=== PATIENT | male | born 1965 | race American Indian/Alaskan Native ===

== ENCOUNTER 2017-10-03 17:24 | Emergency (ER) | payer OTHER ==
[2017-10-03 18:38] LABS: Basophils % (Auto) 0.4 % (0.0-1.8); Eosinophils % (Auto) 0.9 % (0.0-4.3); Hemoglobin 15.1 gm/dl (11.8-15.2); Mean Corpuscular HGB Conc 33 % (32-34); Mean Corpuscular Hemoglobin 29 pg (28-32); Mean Corpuscular Volume 88 fl (84-94); Red Blood Count 5.24 M/mm3 (3.65-5.03); Red Cell Distribution Width 14.5 % (13.2-15.2); White Blood Count 9.6 K/mm3 (4.5-11.0)
[2017-10-03 18:50] LABS: Alanine Aminotransferase 17 units/L (7-56); Albumin 4.5 g/dL (3.9-5); Albumin/Globulin Ratio 1.6 %; Alkaline Phosphatase 92 units/L (35-129); Anion Gap 21 mmol/L; BUN/Creatinine Ratio 16; Blood Urea Nitrogen 18 mg/dL (9-20); Calcium 11.4 mg/dL (8.4-10.2); Carbon Dioxide 23 mmol/L (22-30); Chloride 100.1 mmol/L (98-107); Glucose 94 mg/dL (75-100); Potassium 4.9 mmol/L (3.6-5.0); Sodium 139 mmol/L (137-145); Total Protein 7.4 g/dL (6.3-8.2)
[2017-10-03 19:12] LABS: Platelet Count 139 K/mm3 (140-440)
[2017-10-03] MEDS ORDERED: KEPPRA 1,000 MG/NS 0.75% 100ML 1,000 MG/100 ML BAG IV ONE (19:39)
--- NOTE | 2017-10-03 20:21 | Emergency Department Report ---
HPI - General Chief Complaint: Seizure Time Seen by Provider: 10/03/17 19:26 - HPI HPI: This is a 52 year-old male presents to the emergency department by EMS from [facility] with some witnessed seizure-like activity. The patient says that he does have a history of seizures and has had a seizure about 5 times total in the past. He is unable to tell me what he takes for seizures. However he says he takes Prolixin and Depakote for his history of bipolar disorder. He also has a past medical history of hypertension. Currently the patient has no complaints. He does have the psych history as well as a more remote history of drug abuse. He does not have a primary care physician. No recent travel. ED Past Medical Hx - Past Medical History Previous Medical History?: Yes Hx Hypertension: Yes Hx CVA: Yes Hx Seizures: Yes Hx Psychiatric Treatment: Yes - Social History Smoking Status: Current Every Day Smoker Substance Use Type: Tranquilizers ED Review of Systems ROS: Stated complaint: SEIZURE Other details as noted in HPI Comment: All other systems reviewed and negative Constitutional: denies: chills, fever Eyes: denies: eye pain, eye discharge, vision change ENT: denies: ear pain, throat pain Respiratory: denies: cough, shortness of breath, wheezing Cardiovascular: denies: chest pain, palpitations Gastrointestinal: denies: abdominal pain, nausea, diarrhea Genitourinary: denies: urgency, dysuria Musculoskeletal: denies: back pain, joint swelling, arthralgia Skin: denies: rash, lesions Neurological: denies: headache, weakness Physical Exam - Physical Exam Vital Signs: Vital Signs 10/03/17 10/03/17 10/03/17 17:25 17:47 17:53 Temperature 98.7 F Pulse Rate 115 H Respiratory 18 18 Rate Blood Pressure 139/77 126/77 Blood Pressure [Left] O2 Sat by Pulse 99 Oximetry 10/03/17 19:00 Temperature 98.2 F Pulse Rate 69 Respiratory 12 Rate Blood Pressure Blood Pressure 132/103 [Left] O2 Sat by Pulse 96 Oximetry Physical Exam: GENERAL: The patient is well-developed well-nourished. HENT: Normocephalic. Atraumatic. Patient has moist mucous membranes. Oropharynx is clear but the patient has no teeth. EYES: Extraocular motions are intact. Pupils equal reactive to light bilaterally. No nystagmus. NECK: Supple. Trachea is midline. CHEST/LUNGS: Clear to auscultation. There is no respiratory distress noted. HEART/CARDIOVASCULAR: Regular. There is no tachycardia. There is no murmur. ABDOMEN: Abdomen is soft, nontender. Patient has normal bowel sounds. There is no abdominal distention. SKIN: Skin is warm and dry. NEURO: The patient is awake, alert. The patient is cooperative. The patient has no focal neurologic deficits. MUSCULOSKELETAL: There is no tenderness or deformity. There is no limitation range of motion. There is no evidence of acute injury. ED Course Vital Signs 10/03/17 10/03/17 10/03/17 17:25 17:47 17:53 Temperature 98.7 F Pulse Rate 115 H Respiratory 18 18 Rate Blood Pressure 139/77 126/77 Blood Pressure [Left] O2 Sat by Pulse 99 Oximetry 10/03/17 19:00 Temperature 98.2 F Pulse Rate 69 Respiratory 12 Rate Blood Pressure Blood Pressure 132/103 [Left] O2 Sat by Pulse 96 Oximetry ED Medical Decision Making - Lab Data Result diagrams: 10/03/17 18:17 10/03/17 18:17 - EKG Data -: EKG Interpreted by Ia EKG shows normal: sinus rhythm, axis (borderline left axis), intervals, QRS complexes (Q waves to the septal leads, LVH), ST-T waves Rate: normal - EKG Data When compared to previous EKG there are: previous EKG unavailable Interpretation: LVH, other (sinus rhythm, borderline left axis, Q waves to the septal leads) - Radiology Data Radiology results: report reviewed PROCEDURE: CT HEAD/BRAIN WO CON TECHNIQUE: Computerized tomography of the head was performed without contrast material. HISTORY: Seizure COMPARISON: No prior studies are available for comparison. FINDINGS: Skull and scalp: Normal. Paranasal sinuses: Slight fluid mastoid Ventricles and subarachnoid spaces: Normal. Cerebrum: No evidence of hemorrhage, acute infarction or mass . Cerebellum and brainstem: No evidence of hemorrhage, acute infarction or mass. Vasculature: Normal. Comments: None. IMPRESSION: No acute intracranial pathology seen at this time Transcribed By: RENEA Dictated By: ANGELES CANALES MD Electronically Authenticated By: ANGELES CANALES MD Signed Date/Time: 10/03/17 3343 - Medical Decision Making The patient presents after a alleged seizure. He says that he does have some type of seizure disorder or seizure history but is not on any antiseizure medications. He happens to be on Depakote but this is supposedly for his bipolar disorder. The Depakote level was subtherapeutic. He was given a loading dose and says that he has his regular medications at home. CT of the head did not show any bleed, shift, mass or any acute process. EKG shows some signs of LVH but otherwise no signs of any ST elevation PA or dysrhythmia. Urine drug screen was negative. The rest of his labs were unremarkable except for some hypercalcemia. Patient has not shown any signs of confusion or altered mental status. He was able to ambulate in the emergency department and appeared stable while doing so. For all these reasons the patient appears safe for discharge home at this time but has been given a referral for both primary care and neurology. He will return to the emergency Department with any worsening of symptoms or any acute distress. Critical Care Time: No Critical care attestation.: If time is entered above; I have spent that time in minutes in the direct care of this critically ill patient, excluding procedure time. ED Disposition Clinical Impression: Seizure, Seizure secondary to subtherapeutic anticonvulsant medication Disposition: DC-01 TO HOME OR SELFCARE Is pt being admited?: No Condition: Stable Instructions: Recurrent Seizures Adult (ED) Additional Instructions: Please follow up with a primary care physician in the next few days. I have given a referral for a local neurologist, Dr. Schwarz, to follow up regarding her seizures. Please take your Depakote and Prolixin as previously prescribed. Referrals: HARJINDER BLANCHARD MD [Primary Care Provider] - 3-5 Days IZABELA AGUILAR MD [Staff Physician] - 3-5 Days [facility] [Outside] - 3-5 Days Time of Disposition: 00:59
[2017-10-03 20:32] LABS: Urine Drugs of Abuse Note Disclamer
[2017-10-03 20:41] LABS: Creatine Kinase 180 units/L (55-170)
[2017-10-03 20:42] LABS: Bilirubin,Urine NEG (Negative); Blood,Urine SM (Negative); Ketones,Urine NEG (Negative); Leukocyte Esterase,Urine NEG (Negative); Mucus,Urine FEW /HPF; Nitrite,Urine NEG (Negative); Sperm,Urine 1+ /HPF (NP); Urobilinogen,Urine < 2.0 mg/dL (<2.0)
--- NOTE | 2017-10-03 21:28 | Cat Scan Report ---
FINAL REPORT PROCEDURE: CT HEAD/BRAIN WO CON TECHNIQUE: Computerized tomography of the head was performed without contrast material. HISTORY: Seizure COMPARISON: No prior studies are available for comparison. FINDINGS: Skull and scalp: Normal. Paranasal sinuses: Slight fluid mastoid Ventricles and subarachnoid spaces: Normal. Cerebrum: No evidence of hemorrhage, acute infarction or mass . Cerebellum and brainstem: No evidence of hemorrhage, acute infarction or mass. Vasculature: Normal. Comments: None. IMPRESSION: No acute intracranial pathology seen at this time
[2017-10-03] MEDS ORDERED: DepaCON 1,000 MG in NACL 0.9% 100 ML IV ONE (22:34)
[2017-10-04 00:58] VITALS: BP 124/82
== END 2017-10-04 07:05 | disposition home or self-care (01) ==
LOC: ED 17:24
DX: R56.9 Unspecified convulsions (principal); F31.9 Bipolar disorder, unspecified; I10 Essential (primary) hypertension; F17.200 Nicotine dependence, unspecified, uncomplicated; F13.10 Sedative, hypnotic or anxiolytic abuse, uncomplicated; Z86.73 Personal history of transient ischemic attack (TIA), and cerebral infarction without residual deficits
CPT/HCPCS: 36415; 70450; 80053; 80164; 80307; 81001; 82550; 84484; 85025; 93005; 93010; 96365; 96366; 96367; 99285; J1953

== ENCOUNTER 2017-10-27 08:03 | Emergency (ER) | payer SELFPAY ==
[2017-10-27 08:48] LABS: Hematocrit 46.8 % (35.5-45.6); Mean Corpuscular HGB Conc 32 % (32-34); Mean Corpuscular Hemoglobin 28 pg (28-32); Mean Corpuscular Volume 89 fl (84-94); Platelet Count 171 K/mm3 (140-440); Red Blood Count 5.28 M/mm3 (3.65-5.03); Red Cell Distribution Width 14.7 % (13.2-15.2)
[2017-10-27 09:00] LABS: BUN/Creatinine Ratio 10; Blood Urea Nitrogen 9 mg/dL (9-20); Calcium 10.6 mg/dL (8.4-10.2); Hemolysis Index 10
--- NOTE | 2017-10-27 11:02 | Emergency Department Report ---
ED Seizure HPI - General Chief Complaint: Seizure Stated Complaint: SEIZURE Time Seen by Provider: 10/27/17 10:52 Source: patient, EMS Mode of arrival: Ambulatory Limitations: No Limitations - History of Present Illness Initial Comments: Patient is a 52-year-old male that presents to emergency room with seizure activity lasted 45 seconds per apartment staff and EMS. Seizure was witnessed by apartment staff. Patient states his last seizure was 3-4 weeks ago. Patient states he stopped taking his medications 2 weeks ago He is not sure of the name of his medications but has been at home. Patient states he is having visual hallucination which is normal for him. She denies pain at this time. Patient is A&O 4. He denies chest pain or shortness of breath and fever and chills. Patient denies injury during seizure. MD Complaint: seizure -: Sudden Description of Episode: loss of consciousness, tonic-clonic movement -: second(s) (lasted 45 seconds per EMS) Witnessed:: Yes Trauma: No Place: home Possible Precipitating Event: medication (patient ran out of medications 4 days ago) Associated Symptoms: denies other symptoms Treatments Prior to Arrival: none - Related Data Allergies Allergy/AdvReac Type Severity Reaction Status Date / Time haloperidol [From Haldol] Allergy Angioedema Verified 10/27/17 08:10 ED Review of Systems ROS: Stated complaint: SEIZURE Other details as noted in HPI Constitutional: denies: chills, fever Eyes: denies: eye pain, eye discharge, vision change ENT: denies: ear pain, throat pain Respiratory: denies: cough, shortness of breath, wheezing Cardiovascular: denies: chest pain, palpitations Endocrine: no symptoms reported Gastrointestinal: denies: abdominal pain, nausea, diarrhea Genitourinary: denies: urgency, dysuria Musculoskeletal: denies: back pain, joint swelling, arthralgia Skin: denies: rash, lesions Neurological: denies: headache, weakness, paresthesias Psychiatric: visual hallucinations (presenting a long history of visual hallucinations). denies: anxiety, depression Hematological/Lymphatic: denies: easy bleeding, easy bruising ED Past Medical Hx - Past Medical History Previous Medical History?: Yes Hx Hypertension: Yes Hx CVA: Yes Hx Seizures: Yes Hx Psychiatric Treatment: Yes - Surgical History Past Surgical History?: No Additional Surgical History: UNKNOWN - Family History Family history: no significant - Social History Smoking Status: Current Every Day Smoker Substance Use Type: None ED Physical Exam - General Limitations: No Limitations General appearance: alert, in no apparent distress - Head Head exam: Present: atraumatic, normocephalic - Eye Eye exam: Present: normal appearance, PERRL, EOMI Pupils: Present: normal accommodation - ENT ENT exam: Present: normal exam, mucous membranes moist - Neck Neck exam: Present: normal inspection - Respiratory Respiratory exam: Present: normal lung sounds bilaterally. Absent: respiratory distress - Cardiovascular Cardiovascular Exam: Present: regular rate, normal rhythm. Absent: systolic murmur, diastolic murmur, rubs, gallop - GI/Abdominal GI/Abdominal exam: Present: soft, normal bowel sounds - Rectal Rectal exam: Present: deferred - Extremities Exam Extremities exam: Present: normal inspection - Back Exam Back exam: Present: normal inspection - Neurological Exam Neurological exam: Present: alert, oriented X3, CN II-XII intact, normal gait, motor sensory deficit, reflexes normal - Psychiatric Psychiatric exam: Present: normal affect, normal mood - Skin Skin exam: Present: warm, dry, intact, normal color. Absent: rash ED Course Vital Signs 10/27/17 10/27/17 08:10 12:42 Temperature 98.5 F 98.9 F Pulse Rate 117 H 72 Respiratory 18 18 Rate Blood Pressure 152/111 Blood Pressure 120/90 [Left] O2 Sat by Pulse 99 100 Oximetry ED Medical Decision Making - Lab Data Result diagrams: 10/27/17 08:30 10/27/17 08:30 - Medical Decision Making Patient neurologically intact and stable for discharge. Patient given low-dose of Keppra and instructed to restart his Depakote once again, as directed by his neurologist. Follow up with neurologist as soon as possible as well as his primary care within 3-5 days. Patient encouraged to take medications as directed TO avoid having another seizure. She states she does have medication at his apartment. - Differential Diagnosis sz. Noncompliance. Critical care attestation.: If time is entered above; I have spent that time in minutes in the direct care of this critically ill patient, excluding procedure time. ED Disposition Clinical Impression: Seizure, Noncompliance with medication regimen Disposition: TO HOME OR SELFCARE Is pt being admited?: No Does the pt Need Aspirin: No Condition: Stable Instructions: Epilepsy (ED) Additional Instructions: Patient to follow up with neurologist and primary care within 3 days. Patient follow up in ER if condition worsens. Patient to take meds as prescribed. Referrals: MACIEL MERIDA MD [Primary Care Provider] - 3-5 Days Time of Disposition: 13:39
[2017-10-27] MEDS ORDERED: KEPPRA PO ONE (12:20)
[2017-10-27 12:43] VITALS: BP 120/90
== END 2017-10-28 11:00 | disposition home or self-care (01) ==
LOC: ED 08:03
DX: R56.9 Unspecified convulsions (principal); I10 Essential (primary) hypertension; F17.200 Nicotine dependence, unspecified, uncomplicated; Z91.14 Patient's other noncompliance with medication regimen; Z86.73 Personal history of transient ischemic attack (TIA), and cerebral infarction without residual deficits; Z88.8 Allergy status to other drugs, medicaments and biological substances
CPT/HCPCS: 36415; 80048; 80164; 82962; 85027